=== PATIENT | male | born 1945 | race Caucasian/White ===

== ENCOUNTER → 2020-03-05 09:01 | Outpatient (CLI) | payer MEDICARE, OTHER, SELFPAY ==
--- NOTE | 2020-03-05 | DI.CT.S_ITS ---
PROCEDURE: CT ABDOMEN WO/W CON INDICATIONS: OTHER SPECIFIED DISORDERS OF URETER AND KIDNEY TECHNIQUE: Optional 5 mm thick noncontrast images acquired from the diaphragm to the iliac crests. After the administration of intravenous contrast, 5 mm thick images again acquired from the diaphragm to the iliac crests in the arterial and urographic phases. 5 mm thick coronal and sagittal reformats were then acquired. For radiation dose reduction, the following was used: automated exposure control, adjustment of mA and/or kV according to patient size. COMPARISON: Outside Film, CT, CT ANGIO CHEST ABDOMEN PELVIS, 10/25/2019, 12:25. FINDINGS: Image quality: Excellent. Lung bases: Lung bases are clear. Heart size is normal. Genitourinary: Both kidneys demonstrate normal size and enhancement. No hydronephrosis. No nephrolithiasis. Low density cortical cysts are present bilaterally. There is an exophytic, enhancing mass off the lower pole of the right kidney which measures 2.2 x 3.1 x 2.3 cm. This lesion measured 2.2 x 3.0 x 2.4 cm on the comparison CT dated 10/25/19. This lesion demonstrates 36 Hounsfield units on the precontrast study and 52 Hounsfield units on the delayed phase study. Other solid organs: Liver is normal in size and diffusely hypodense suggesting hepatic steatosis. Gallbladder is unremarkable. Biliary system is non dilated. Pancreas enhances normally. Spleen is normal in size and enhancement. No adrenal nodules. Peritoneum and bowel: Unenhanced bowel loops are normal in wall thickness and caliber. No free fluid or air. Nodes and vessels: No retroperitoneal or mesenteric adenopathy by size criteria. there is an abdominal aortic aneurysm which measures 5.9 cm in the AP diameter. Bones: No suspicious bony lesions. No vertebral body compression fractures. Miscellaneous: No ventral hernias. IMPRESSION: 1. Exophytic enhancing mass within the lower pole the right kidney similar in size to the study dated 10/25/19. 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 Oncocytoma could also be considered in the differential diagnosis. 2. Abdominal aortic aneurysm measuring 5.9 cm in diameter, unchanged from the prior study. 3. Hepatic steatosis. Dictated by: Uzma Henry M.D. on 03/05/2020 at 12:02 Approved by: Uzma Henry M.D. on 03/05/2020 at 12:38
[2020-03-05 09:34] LABS: BUN Creatinine Ratio 14.8 (6-22); Blood Urea Nitrogen 21 mg/dL (9-20); Estimated Glomerular Filt Rate 48.5 mL/min (>60)
== END ==
PROVIDERS: PCP Family Medicine; Referring Provider Urology; Visit Provider Urology
DX: N28.89 Other specified disorders of kidney and ureter (principal); N28.1 Cyst of kidney, acquired; I71.4 Abdominal aortic aneurysm, without rupture; K76.0 Fatty (change of) liver, not elsewhere classified
CPT/HCPCS: 36415; 74170; 82565; 84520; Q9967